=== PATIENT | male | born 1960 | race Caucasian/White ===

== ENCOUNTER 2019-10-26 21:44 | Observation (INO) ==
[2019-10-27] MEDS ORDERED: Naloxone 0.4 MG/ML INJ IVP PRN (00:40)
[2019-10-27] MEDS ORDERED: Acetaminophen 325 MG TABLET PO PRN (00:40)
[2019-10-27] MEDS ORDERED: *HR* Promethazine 25 MG/ML VIAL IVP PRN (00:40)
[2019-10-27] MEDS ORDERED: D5% in Water 1,000 ML IVC PRN (00:44)
[2019-10-27] MEDS ORDERED: Dextrose Gel 15 GM/37.5 ML TUBE PO PRN ×2 (00:44)
[2019-10-27] MEDS ORDERED: *HR* Dextrose 50 % in Water (Vial) 50 ML VIAL IVP PRN (00:44)
[2019-10-27] MEDS: 0.9 % Sodium Chloride 1,000 ML IVC SCH ×2 (01:19→11:40)
[2019-10-27] MEDS: Insulin LISPRO 300 UNITS/3 ML VIAL SQ SCH ×4 (01:23→17:59)
[2019-10-27 01:48] LABS: Basophils # 0.1 K/mcL (0.0-0.2); Basophils % 0.7 %; Eosinophils # 0.2 K/mcL (0.0-0.6); Eosinophils % 1.1 %; Hematocrit 50.7 % (37.5-50.1); Hemoglobin 16.9 g/dL (12.9-16.9); Immature Granulocytes % 0.7 % (0-4); Lymphocytes # 3.5 K/mcL (0.6-4.6); Lymphocytes % 23.5 %; Mean Corpuscular HGB Conc 33.3 g/dL (31.6-35.5); Mean Corpuscular Hemoglobin 30.6 pg (28.0-33.3); Mean Corpuscular Volume 91.7 fL (83.0-100.0); Mean Platelet Volume 10.4 fL (9.4-12.4); Monocytes # 1.5 K/mcL (0.0-1.3); Monocytes % 10.2 %; Neutrophils # 9.6 K/mcL (1.6-8.9); Platelet Count 395 K/mcL (140-400); Prothrombin Time 11.5 Seconds (9.4-12.1); Red Blood Count 5.53 M/mcL (4.19-5.50); Red Cell Distribution Width 13.2 % (11.5-14.5); Segmented Neutrophils % 63.8 %
[2019-10-27 02:05] LABS: Alanine Aminotransferase 20 Units/L (7-52); Albumin/Globulin Ratio 1.4 (1.1-2.2); Alkaline Phosphatase 115 Units/L (34-104); Aspartate Amino Transferase 12 Units/L (13-39); BUN/Creatinine Ratio 10 (6-26); Bilirubin,Total 0.5 mg/dL (0.3-1.0); Blood Urea Nitrogen 7 mg/dL (6-20); Calcium 9.7 mg/dL (8.6-10.3); Carbon Dioxide 28 mEq/L (23-29); Chloride 102 mEq/L (98-107); Chol/HDL Ratio 6.8 (0-4.9); Cholesterol 210 mg/dL (< 200); Globulin 2.8 g/dL (2.4-3.5); Glucose 115 mg/dL (70-105); HDL Cholesterol 31 mg/dL (40-59); LDL Cholesterol,Calculated 157 mg/dL (< 100); Osmolality,Calculated 285 (280-300); Phosphorous 3.2 mg/dL (2.7-4.5); Potassium 3.8 mEq/L (3.5-5.1); Sodium 138 mEq/L (136-145); Total Protein 6.8 g/dL (6.4-8.9); Triglycerides 109 mg/dL (< 150); eGFR For African Americans > 60 (> 60); eGFR For Non-African Americans > 60 (> 60)
[2019-10-27 02:16] LABS: Thyroid Stimulating Hormone 0.876 mcIU/mL (0.340-5.600)
[2019-10-27 02:30] LABS: Folate 14.2 ng/mL (3.0-16.0)
[2019-10-27] MEDS ORDERED: Aspirin 325 MG TABLET PO ONE (02:54)
[2019-10-27] MEDS: *HR* Enoxaparin 40 MG/0.4 ML SYRINGE SQ SCH (05:07)
[2019-10-27] MEDS: Cyanocobalamin (B-12) 1,000 MCG/ML VIAL IM SCH (09:17)
[2019-10-27 09:44] LABS: Estimated Average Glucose 349 mg/dl
[2019-10-27 09:57] LABS: Estimated Average Glucose 355 mg/dl
[2019-10-27] MEDS: Thiamine (B-1) 100 MG in 0.9 % Sodium Chloride 50 ML IVPB SCH (13:51)
[2019-10-27] MEDS: Insulin DETEMIR 100 UNIT/ML X5UNITS SQ SCH (13:51)
[2019-10-27] MEDS ORDERED: Insulin LISPRO 300 UNITS/3 ML VIAL SQ SCH (21:00)
[2019-10-28] MEDS: *HR* Enoxaparin 40 MG/0.4 ML SYRINGE SQ SCH (05:01)
[2019-10-28 05:55] LABS: Basophils # 0.1 K/mcL (0.0-0.2); Basophils % 0.7 %; Eosinophils # 0.2 K/mcL (0.0-0.6); Eosinophils % 1.2 %; Hematocrit 50.4 % (37.5-50.1); Hemoglobin 17.1 g/dL (12.9-16.9); Immature Granulocytes % 0.6 % (0-4); Lymphocytes # 3.1 K/mcL (0.6-4.6); Mean Corpuscular HGB Conc 33.9 g/dL (31.6-35.5); Mean Corpuscular Hemoglobin 31.2 pg (28.0-33.3); Mean Platelet Volume 10.7 fL (9.4-12.4); Monocytes # 1.7 K/mcL (0.0-1.3); Monocytes % 11.5 %; Neutrophils # 9.7 K/mcL (1.6-8.9); Platelet Count 355 K/mcL (140-400); Red Blood Count 5.48 M/mcL (4.19-5.50); Red Cell Distribution Width 13.1 % (11.5-14.5); White Blood Count 14.9 K/mcL (4.3-11.1)
[2019-10-28 07:31] VITALS: BP 135/83
[2019-10-28] MEDS: Insulin LISPRO 300 UNITS/3 ML VIAL SQ SCH (08:25)
[2019-10-28] MEDS: Insulin DETEMIR 100 UNIT/ML X5UNITS SQ SCH (08:26)
[2019-10-28] MEDS: Thiamine (B-1) 100 MG in 0.9 % Sodium Chloride 50 ML IVPB SCH (08:27)
[2019-10-28] MEDS: Cyanocobalamin (B-12) 1,000 MCG/ML VIAL IM SCH (08:33)
[2019-10-28] MEDS ORDERED: Aspirin 81 MG TAB.CHEW PO SCH (09:00)
== END 2019-10-28 14:25 | disposition home or self-care (01) ==
LOC: 3BNU → SUATTDRO 23:21
PROVIDERS: ADMIT Internal Medicine; ATTEND Internal Medicine